=== PATIENT | female | born 1950 | race Caucasian/White ===

== ENCOUNTER → 2020-01-02 | Outpatient (CLI) | payer MEDICARE, OTHER | LOC: RAD 12:56 | DX: M51.36 Other intervertebral disc degeneration, lumbar region (principal); M47.816 Spondylosis without myelopathy or radiculopathy, lumbar region ==

== ENCOUNTER → 2020-01-04 | Outpatient (CLI) | payer MEDICARE, OTHER | LOC: RAD 11:25 | DX: M19.90 Unspecified osteoarthritis, unspecified site (principal); Q89.9 Congenital malformation, unspecified ==

== ENCOUNTER → 2020-01-16 | Outpatient (CLI) | payer MEDICARE, OTHER | LOC: RAD 01-15 11:45 | DX: M51.34 Other intervertebral disc degeneration, thoracic region (principal); M48.04 Spinal stenosis, thoracic region ==

== ENCOUNTER 2020-03-22 10:06 | Outpatient (RCR) | payer MEDICARE, OTHER | END 2020-06-20 | disposition still patient (30) | LOC: PT | DX: M47.896 Other spondylosis, lumbar region (principal) ==

== ENCOUNTER → 2020-06-18 | Outpatient (CLI) | payer MEDICARE, OTHER ==
[2020-06-18 12:22] LABS: ALBUMIN 4.2 g/dL (3.4-4.8)
[2020-06-18 12:26] LABS: TOTAL BILIRUBIN 0.4 mg/dL (0.2-1.2)
[2020-06-18 12:29] LABS: POTASSIUM 4.4 mmol/L (3.5-5.1)
[2020-06-18 12:30] LABS: CALCIUM 9.2 mg/dL (8.3-10.5)
[2020-06-18 12:33] LABS: HEMATOCRIT 44.1 % (37.0-47.0); HEMOGLOBIN 14.6 g/dL (12.5-16.0); MEAN CELL VOLUME 94 fl (78-100); MEAN CORPUSCULAR HEMOGLOBIN 31 pg (27-31); MEAN CORPUSCULAR HGB CONC 33 g/dL (33-37); MEAN PLATELET VOLUME 10.4 fl (7.4-10.4); PLATELET COUNT 260 K/mm3 (130-400); RED BLOOD COUNT 4.71 M/mm3 (4.10-5.30); RED CELL DISTRIBUTION WIDTH 13.2 % (11.5-14.5); WHITE BLOOD COUNT 5.5 K/mm3 (4.8-10.8)
[2020-06-18 13:06] LABS: NEUTROPHILS 36 % (42-75)
[2020-06-18 13:07] LABS: LYMPHOCYTE 43 % (20-51); MONOCYTE 17 % (3-10); TEAR DROP CELLS 1+
== END ==
LOC: RAD 11:49
PROVIDERS: Physician Assistant
DX: Z13.1 Encounter for screening for diabetes mellitus (principal); M47.812 Spondylosis without myelopathy or radiculopathy, cervical region; G62.9 Polyneuropathy, unspecified; M25.512 Pain in left shoulder

== ENCOUNTER → 2020-06-21 | Outpatient (CLI) | payer MEDICARE, OTHER | LOC: RAD 16:06 | DX: M19.042 Primary osteoarthritis, left hand (principal) ==

== ENCOUNTER → 2020-07-05 | Outpatient (CLI) | payer MEDICARE, OTHER | LOC: RAD 13:20 | DX: L03.012 Cellulitis of left finger (principal) ==

== ENCOUNTER 2020-08-28 13:02 | Outpatient (RCR) | payer MEDICARE, OTHER | END 2020-11-26 | disposition home or self-care (01) | LOC: PT | DX: M48.062 Spinal stenosis, lumbar region with neurogenic claudication (principal); M54.41 Lumbago with sciatica, right side ==

== ENCOUNTER → 2020-09-17 | Outpatient (CLI) | payer MEDICARE, OTHER | LOC: LAB 14:54 | DX: E03.9 Hypothyroidism, unspecified (principal) ==

== ENCOUNTER 2020-11-28 12:23 | Outpatient (RCR) | payer MEDICARE, OTHER | END 2021-02-26 | disposition home or self-care (01) | LOC: PT | DX: M54.41 Lumbago with sciatica, right side (principal); M48.062 Spinal stenosis, lumbar region with neurogenic claudication ==

== ENCOUNTER 2020-12-09 10:04 | Outpatient (RCR) | payer MEDICARE, OTHER | END 2021-03-09 | disposition home or self-care (01) | LOC: PT | DX: M54.2 Cervicalgia (principal) ==

== ENCOUNTER → 2021-02-25 | Outpatient (CLI) | payer MEDICARE, OTHER | LOC: RAD 07:00 | DX: M43.13 Spondylolisthesis, cervicothoracic region (principal); M47.812 Spondylosis without myelopathy or radiculopathy, cervical region; Z98.890 Other specified postprocedural states; M48.01 Spinal stenosis, occipito-atlanto-axial region; M47.816 Spondylosis without myelopathy or radiculopathy, lumbar region ==

== ENCOUNTER → 2021-05-23 | Outpatient (CLI) | payer MEDICARE, OTHER | LOC: LAB 11:03 | DX: Z01.812 Encounter for preprocedural laboratory examination (principal); Z20.822 Contact with and (suspected) exposure to COVID-19 ==

== ENCOUNTER → 2021-08-05 | Outpatient (CLI) | payer MEDICARE, OTHER ==
[2021-08-05 09:02] LABS: BASO # 0.09 K/mm3 (0.02-0.10); EOS # 0.18 K/mm3 (0.04-0.40); EOS % 3.1 % (1.0-5.0); HEMATOCRIT 44.4 % (37.0-47.0); HEMOGLOBIN 14.6 g/dL (12.5-16.0); LYMPH# 2.39 K/mm3 (1.50-4.00); MEAN CELL VOLUME 95 fl (78-100); MEAN CORPUSCULAR HEMOGLOBIN 31 pg (27-31); MEAN CORPUSCULAR HGB CONC 33 g/dL (33-37); MEAN PLATELET VOLUME 9.7 fl (7.4-10.4); MONO # 0.76 K/mm3 (0.20-0.80); NEU # 2.34 K/mm3 (1.40-6.50); PLATELET COUNT 254 K/mm3 (130-400); RED BLOOD COUNT 4.68 M/mm3 (4.10-5.30); RED CELL DISTRIBUTION WIDTH 12.4 % (11.5-14.5); WHITE BLOOD COUNT 5.8 K/mm3 (4.8-10.8)
[2021-08-05 09:06] LABS: POTASSIUM 3.8 mmol/L (3.5-5.1)
[2021-08-05 09:07] LABS: ALBUMIN 4.5 g/dL (3.4-4.8); CALCIUM 10.1 mg/dL (8.3-10.5)
[2021-08-05 09:09] LABS: TOTAL PROTEIN 7.3 g/dL (6.2-8.1)
[2021-08-05 10:10] LABS: ERYTHROCYTE SEDIMENTATION RATE 15 mm/hr (0-30)
== END ==
LOC: LAB 08:35
PROVIDERS: Physician Assistant
DX: Z00.00 Encounter for general adult medical examination without abnormal findings (principal); Z13.1 Encounter for screening for diabetes mellitus; Z13.220 Encounter for screening for lipoid disorders; E03.9 Hypothyroidism, unspecified; M47.812 Spondylosis without myelopathy or radiculopathy, cervical region; M47.816 Spondylosis without myelopathy or radiculopathy, lumbar region; F41.8 Other specified anxiety disorders; G62.9 Polyneuropathy, unspecified; Z13.29 Encounter for screening for other suspected endocrine disorder; M19.90 Unspecified osteoarthritis, unspecified site; M79.671 Pain in right foot; M79.672 Pain in left foot; M79.641 Pain in right hand; M79.642 Pain in left hand; M25.50 Pain in unspecified joint; K90.9 Intestinal malabsorption, unspecified

== ENCOUNTER 2021-08-14 10:00 | Outpatient (RCR) | payer MEDICARE, OTHER | END 2021-09-04 | disposition home or self-care (01) | LOC: PT | DX: M48.02 Spinal stenosis, cervical region (principal); G99.2 Myelopathy in diseases classified elsewhere ==

== ENCOUNTER → 2021-08-20 | Outpatient (CLI) | payer MEDICARE, OTHER | LOC: LAB 15:11 | DX: Z00.00 Encounter for general adult medical examination without abnormal findings (principal); Z13.1 Encounter for screening for diabetes mellitus; Z13.29 Encounter for screening for other suspected endocrine disorder; Z13.220 Encounter for screening for lipoid disorders; M47.812 Spondylosis without myelopathy or radiculopathy, cervical region; M47.816 Spondylosis without myelopathy or radiculopathy, lumbar region; F41.8 Other specified anxiety disorders; G62.9 Polyneuropathy, unspecified; E03.9 Hypothyroidism, unspecified; M19.90 Unspecified osteoarthritis, unspecified site; M79.671 Pain in right foot; M79.672 Pain in left foot; M79.641 Pain in right hand; M79.642 Pain in left hand; K90.9 Intestinal malabsorption, unspecified ==

== ENCOUNTER 2021-09-05 13:00 | Outpatient (RCR) | payer MEDICARE, OTHER | END 2021-10-05 | disposition home or self-care (01) | LOC: PT | DX: M48.02 Spinal stenosis, cervical region (principal); G99.2 Myelopathy in diseases classified elsewhere ==

== ENCOUNTER → 2022-03-30 | Outpatient (CLI) | payer MEDICARE, OTHER | LOC: LAB 13:36 | DX: Z00.00 Encounter for general adult medical examination without abnormal findings (principal); Z12.39 Encounter for other screening for malignant neoplasm of breast; Z13.820 Encounter for screening for osteoporosis; E03.9 Hypothyroidism, unspecified; M47.816 Spondylosis without myelopathy or radiculopathy, lumbar region; M47.812 Spondylosis without myelopathy or radiculopathy, cervical region; M50.30 Other cervical disc degeneration, unspecified cervical region; M51.36 Other intervertebral disc degeneration, lumbar region; G62.9 Polyneuropathy, unspecified; M19.90 Unspecified osteoarthritis, unspecified site; M79.641 Pain in right hand; R60.9 Edema, unspecified; M54.30 Sciatica, unspecified side ==

== ENCOUNTER → 2022-04-07 | Outpatient (CLI) | payer MEDICARE, OTHER | LOC: RAD 13:52 | DX: M17.9 Osteoarthritis of knee, unspecified (principal) ==

== ENCOUNTER → 2023-10-14 | Outpatient (CLI) | payer MEDICARE ==
[2023-10-15 09:45] LABS: ANA SCREEN with REFLEX Negative (Negative)
== END ==
LOC: LAB 10:16
PROVIDERS: Physician Assistant
DX: M19.042 Primary osteoarthritis, left hand (principal); M19.041 Primary osteoarthritis, right hand